=== PATIENT | female | born 1945 | race Caucasian/White ===

== ENCOUNTER 2016-07-17 14:55 | Emergency (ER) | payer MEDICARE, MEDICAID ==
[~2016-07-17] VITALS: Ht 152.4 cm; Wt 55.9 kg
[2016-07-17 15:57] VITALS: BP 148/66
== END 2016-07-17 20:29 | disposition left against medical advice (07) ==
LOC: EMS 14:58
DX: R51 Headache (principal); Z53.21 Procedure and treatment not carried out due to patient leaving prior to being seen by health care provider